=== PATIENT | female | born 2005 | race Caucasian/White ===

== ENCOUNTER 2023-08-26 12:57 | Emergency (ER) | payer OTHER ==
[~2023-08-26] VITALS: Ht 157.5 cm; Wt 63.6 kg
[2023-08-26 15:38] VITALS: TEMP 97.8
[2023-08-26 16:30] VITALS: BP 129/59; O2SAT 100
== END 2023-08-26 16:37 | disposition home or self-care (01) ==
LOC: M ED 12:57
DX: S90.32XA Contusion of left foot, initial encounter (principal); Y92.9 Unspecified place or not applicable; Y93.9 Activity, unspecified; Y99.9 Unspecified external cause status; W10.8XXA Fall (on) (from) other stairs and steps, initial encounter; F17.210 Nicotine dependence, cigarettes, uncomplicated